=== PATIENT | male | born 2000 ===

== ENCOUNTER 2023-09-29 20:33 | Emergency (ER) | payer OTHER, SELFPAY ==
[2023-09-29 20:42] VITALS: BP 125/70; PULSE 99; RESP 20; TEMP 36.4; O2SAT 100; BMI 19.0
--- NOTE | 2023-09-29 21:34 | PC.NURSE ---
[employer]INEER note: Patient sleeping in waiting room in a wheel chair.
--- NOTE | 2023-09-29 21:36 | PC.NURSE ---
This RN went into [facility] to check on patient, wakes to verbal stimulation and when asked if patient is okay, patient nodded in the affirmative.
--- NOTE | 2023-09-29 23:10 | ED.GENADULT ---
HPI - General Adult General Chief complaint: Toxicology Problem Stated complaint: THC intox Time Seen by Provider: 09/29/23 23:07 Source: patient and EMS Mode of arrival: EMS History of Present Illness HPI narrative: Patient is a 23-year-old male. He was airlifted to the emergency department for evaluation of having palpitations after taking a hit of THC. He states he smokes THC often. He states he bought this THC from a dispensary. He denies any other ingestions. He states that after he took the hit of THC he felt like his heart was beating fast. He was 1 who contacted EMS. By the time I evaluated the patient his symptoms had improved/resolved. Related Data Home Medications Medication Instructions Recorded Confirmed No Known Home Medications 09/29/23 09/29/23 Allergies Allergy/AdvReac Type Severity Reaction Status Date / Time No Known Drug Allergies Allergy Verified 09/29/23 20:54 Review of Systems Constitutional Constitutional: Reports system reviewed and no additional complaints, except as documented Cardiovascular Cardiovascular: Reports system reviewed and no additional complaints, except as documented Respiratory Respiratory: Reports system reviewed and no additional complaints, except as documented Gastrointestinal Gastrointestinal: Reports system reviewed and no additional complaints, except as documented Neurologic Neurologic: Reports system reviewed and no additional complaints, except as documented Hematologic/Lymphatic On Anticoagulants: No Patient History Social History Smoking Status: Never smoker Smoking Status: Never smoker alcohol intake frequency: 0-2 drinks per day Substance Use Type: marijuana Exam Initial Vital Signs Initial Vital Signs: Vital Signs Temperature 97.6 F 09/29/23 20:42 Pulse Rate 99 H 09/29/23 20:42 Respiratory Rate 20 09/29/23 20:42 Blood Pressure 125/70 09/29/23 20:42 Pulse Oximetry 100 09/29/23 20:42 Oxygen Delivery Method Room Air 09/29/23 20:42 Const General: cooperative, comfortable and No ill appearing HENMT Head: normal to inspection and normocephalic Resp Effort & Inspection: normal respiratory effort Auscultation: clear to auscultation bilaterally Cardio Rate: regular rate Rhythm: regular rhythm Skin General: no rashes or lesions noted Neuro General: patient alert, patient awake, patient oriented x3 and moves all extremities Course Vital Signs Vital signs: Vital Signs - 8 hr 09/29/23 20:42 09/29/23 23:21 Temperature 97.6 F 98.4 F Pulse Rate 99 H 73 Respiratory Rate 20 16 Blood Pressure 125/70 119/75 Pulse Oximetry 100 100 Oxygen Delivery Method Room Air Room Air Medical Decision Making MDM Narrative Medical decision making narrative: Patient is now asymptomatic. Vital signs unremarkable. Not tachycardic. I suspect that his symptoms were related to the THC. No indication for admission the hospital or labs. Will discharge patient home. He was instructed to consider not using any more of this THC as it seems to have caused him issues this evening. He expressed understanding and agreement. Discharge Plan Departure Patient Disposition: Home Clinical Impression: Palpitations Activity Restrictions/Additional Instructions: Your heart rate and rhythm and other vital signs here in the emergency department are normal. I recommend that you do not use anymore of the THC that you purchase earlier today is there is a chance that it may cause the same symptoms once again. Contact your primary care doctor for a follow-up. Prescriptions: No Action No Known Home Medications Stand Alone Forms: Patient Portal/API
[2023-09-29 23:21] VITALS: BP 119/75; PULSE 73; RESP 16; TEMP 36.9; O2SAT 100
== END 2023-09-29 23:23 | disposition home or self-care (01) ==
PROVIDERS: Emergency Provider Emergency Medicine
DX: R00.2 Palpitations (principal)
CPT/HCPCS: 99282